=== PATIENT | male | born 1950 | race African-American/Black ===

== ENCOUNTER 2021-07-29 10:47 | Day surgery (SDC) | payer OTHER ==
[~2021-07-29] VITALS: Ht 172.7 cm; Wt 85.9 kg
[2021-07-29 11:28] VITALS: BP 127/61; PULSE 67; TEMP 97.9
[2021-07-29] MEDS ORDERED: NORVASC 10MG10 MG PO (11:44)
[2021-07-29] MEDS ORDERED: NATURAL C500 MG PO (11:45)
[2021-07-29] MEDS ORDERED: LIPITOR 80MG80 MG PO (11:45)
[2021-07-29] MEDS ORDERED: COREG 25MG25 MG/TAB PO (11:45)
[2021-07-29] MEDS ORDERED: COLACE 100100 MG/CAP PO (11:46)
[2021-07-29] MEDS ORDERED: COSOPT 2%-0.5%10 ML OU (11:47)
[2021-07-29] MEDS ORDERED: FERROUS SU325 MG/TAB PO (11:48)
[2021-07-29] MEDS ORDERED: EPOGEN20000 U/ML SQ (11:48)
[2021-07-29] MEDS ORDERED: APRESOLINE50 MG PO (11:49)
[2021-07-29] MEDS ORDERED: NOVOLOG FLEX100 U/ML SQ (11:50)
[2021-07-29] MEDS ORDERED: HCTZ 25MG TAB25 MG PO (11:51)
[2021-07-29] MEDS ORDERED: LEVEMIR FLEX100 U/ML SQ (11:52)
[2021-07-29] MEDS ORDERED: ZESTRIL40 MG PO (11:52)
[2021-07-29] MEDS ORDERED: CVS GLUCOSE BIT1 CTB PO (11:53)
[2021-07-29 11:56] LABS: CALCIUM 8.5 mg/dL (8.4-10.2); CREATININE, serum 4.62 mg/dL (0.72-1.25); POTASSIUM 3.9 mmol/L (3.5-4.5)
[2021-07-29 15:27] VITALS: BP 109/56; PULSE 62; TEMP 97.7
--- NOTE | 2021-07-29 15:27 | NUR ---
The patient arrived back to [facility] from the recovery room at this time. The patient appears alert and oriented and denies any pain or nausea at this time. The patient's post operative vital signs were started at this time. The patient's is at his bedside at this time. The patient's dressing to his catheter and the four bandaids to his abdomen appear clean, dry and intact. Call light is within reach. Will continue to monitor the patient.
[2021-07-29 15:42] VITALS: BP 111/56; PULSE 65
--- NOTE | 2021-07-29 15:42 | NUR ---
The patient appears more alert and agrees to try some apple juice at this time. The patient's vital signs appear stable. Call light is within reach. Will continue to monitor the patient.
[2021-07-29 15:57] VITALS: BP 116/67; PULSE 63
--- NOTE | 2021-07-29 15:57 | NUR ---
The patient appeared to tolerate the first glass of juice well and requests another glass of juice and some chocolate pudding at this time. remains at his bedside at this time.
--- NOTE | 2021-07-29 16:05 | NUR ---
The patient's reported to the nurse that his oxygen saturation at home over the "last few weeks" has been "about 87%". She did state that [facility] but does not currently have any oxygen at home. She thinks the [facility] "might think [facility] still has some" and the nurse encouraged her to reach out to his physician there to inquire about him getting home oxygen once again.
[2021-07-29 16:12] VITALS: BP 111/50; PULSE 67
--- NOTE | 2021-07-29 16:12 | NUR ---
The patient was weaned down to room air at this time. The patient appears to be tolerating it well. The patient finished his pudding and juice and tolerate it well. remains at his bedside.
--- NOTE | 2021-07-29 16:23 | NUR ---
Dr. Ga was notified of the patient's current oxygen saturation and what he has been maintaining at at home, which per the is 87%, he verbalized understanding and instructed the nurse that the patient can be discharged with an oxygen saturation at or above 85% on room air.
[2021-07-29 16:42] VITALS: BP 112/55; PULSE 63
--- NOTE | 2021-07-29 16:42 | NUR ---
The patient is sitting up in bed and maintaining his oxygen satruation between 85-87% on room air. The patient's is encouraging him to deep breath and cough and he is doing it and tolerating it well. The patient voices a desire to be discharged home.
--- NOTE | 2021-07-29 16:55 | NUR ---
The patient voided 200 mL of yellow, clear urine standing at his bedside using the urinal and tolerated the activity well.
--- NOTE | 2021-07-29 17:05 | NUR ---
Discharge instructions were reviewed with the patient and his at this time. They both verbalized understanding and questions were answered at this time. The nurse encouarged the patient's to monitor his oxygen level and reminded her that Dr. Ga would like it to maintain above 85%. The asked what to do if it gets below that level and stays there and the nurse informed her that he would need to be taken to the closest Emergency Room for evaluation. The patient's IV was removed and a pressure dressing was applied to the site.
--- NOTE | 2021-07-29 17:15 | NUR ---
The patient was escorted out via wheelchair to a private vehicle by RAFFAELE Spaulding. The patient's belongings and discharge paperwork were sent with him. The patient's and son are present to drive him home.
== END 2021-07-29 17:15 | disposition home or self-care (01) ==
LOC: SDCO 10:47
PROVIDERS: Surgery
DX: N18.5 Chronic kidney disease, stage 5 (principal); I12.0 Hypertensive chronic kidney disease with stage 5 chronic kidney disease or end stage renal disease; E11.22 Type 2 diabetes mellitus with diabetic chronic kidney disease; E11.21 Type 2 diabetes mellitus with diabetic nephropathy; J44.9 Chronic obstructive pulmonary disease, unspecified; D64.9 Anemia, unspecified; F17.210 Nicotine dependence, cigarettes, uncomplicated; Z79.899 Other long term (current) drug therapy; Z79.4 Long term (current) use of insulin; Z79.82 Long term (current) use of aspirin; Z85.51 Personal history of malignant neoplasm of bladder; Z80.42 Family history of malignant neoplasm of prostate; Z80.3 Family history of malignant neoplasm of breast; Z83.3 Family history of diabetes mellitus
CPT/HCPCS: C1750; J0690; J2370; J2405; J2704; J3010; J7030

== ENCOUNTER 2022-06-07 15:36 | Inpatient (IN) | payer OTHER, MEDICARE ==
[~2022-06-07] VITALS: Ht 172.7 cm; Wt 81.4 kg
[~2022-06-07 15:36] MED LIST: APRESOLINE50 MG PO; COLACE 100100 MG/CAP PO; COREG 25MG25 MG/TAB PO; COSOPT 2%-0.5%10 ML OU; CVS GLUCOSE BIT1 CTB PO; EPOGEN20000 U/ML SQ; FERROUS SU325 MG/TAB PO; HCTZ 25MG TAB25 MG PO; LEVEMIR FLEX100 U/ML SQ; LIPITOR 80MG80 MG PO; NATURAL C500 MG PO; NORVASC 10MG10 MG PO; NOVOLOG FLEX100 U/ML SQ; ZESTRIL40 MG PO
[2022-06-07 16:19] LABS: BASO # 0.1 K/mm3 (0.0-0.2); BASO % 0.6 % (0.0-2.0); EOS # 0.1 K/mm3 (0.0-0.7); EOS % 0.6 % (0.0-4.0); GRAN # 13.4 K/mm3 (1.4-6.5); GRAN % 86.9 % (42.2-75.2); LYMPH # 0.7 K/mm3 (1.2-3.4); LYMPH % 4.7 % (20.0-51.0); MEAN CELL VOLUME 86 fl (80.0-100.0); MEAN CORPUSCULAR HEMOGLOBIN 29 pg (27-31); MEAN CORPUSCULAR HGB CONC 33 g/dl (33.0-37.0); MEAN PLATELET VOLUME 9.4 fl (7.4-10.4); MONO % 6.7 % (1.7-9.3); PLATELET COUNT 371 K/mm3 (130-400); RED BLOOD COUNT 3.85 M/mm3 (4.20-5.60)
[2022-06-07 16:20] LABS: HEMATOCRIT 33.2 % (42.0-52.0)
[2022-06-07 16:40] LABS: ALBUMIN 2.8 gm/dL (3.4-4.8); ALKALINE PHOSPHATASE 143 U/L (40-150); ANION GAP 24 mmol/L (7-16); AST,SGOT 23 U/L (5-34); BILIRUBIN,TOTAL 0.4 mg/dL (0.2-1.2); BLOOD UREA NITROGEN 55 mg/dL (8-26); CALCIUM 9.4 mg/dL (8.4-10.2); CARBON DIOXIDE 27 mmol/L (23-31); CREATININE, serum 13.84 mg/dL (0.72-1.25); GLUCOSE 158 mg/dL (70-99); LIPASE 11 U/L (8-78); SODIUM 140 mmol/L (136-145); TOTAL PROTEIN 7.4 gm/dL (6.2-8.1)
[2022-06-07 16:56] LABS: ALANINE AMINOTRANSFERASE < 6 U/L (0-55); CHLORIDE 89 mmol/L (98-107)
[2022-06-07 19:05] LABS: INR 1.1 (0.8-3.0); PROTHROMBIN TIME 12.7 SECONDS (9.7-12.8)
[2022-06-07 20:00] VITALS: BP 109/95; PULSE 94; TEMP 98.7
--- NOTE | 2022-06-07 22:00 | NUR ---
Patient arrived to the floor at 1999, INT to LFA, with oxygen at 3liters via nasal prong, denies pain, head to toe assessment done, spoken to his Nani to ask patient's home meds but she couldn't tell this nurse as to when was the last time he took each of his 's meds, patient as well can't tell the nurse as well. [facility] for the [facility] list of home meds. Patient able to voice needs, call light and personal items within reach, will continue to monitor.
[2022-06-08] VITALS (11 sets, daily range): BP systolic 77–111; BP diastolic 34–66; PULSE 68–91; TEMP 97.8–98.7
--- NOTE | 2022-06-08 00:40 | NUR ---
Called Dr. Shea d/t patient's manual blood pressure reading was 82/40. Received orders for blood sugra check 4 times a day, moderate sliding scale insulin, and NS 500cc to run in [address] Shea was also informed regarding the medrec that was not yet done.
--- NOTE | 2022-06-08 02:30 | NUR ---
PT FOUND ON 4L/NC SPO2 92% RN NOTIFIED NO O2 ORDER IN CHART
--- NOTE | 2022-06-08 02:43 | NUR ---
Patients blood pressure was 88/50, in trendelenburg position, denies dizziness or light headedness, still with NS running at 100cc/hr, will continue to monitor.
--- NOTE | 2022-06-08 06:02 | NUR ---
Patient's blood pressure 108/63, denies further need at this time, denies nausea or vomiting, will continue to monitor.
--- NOTE | 2022-06-08 10:09 | NUR ---
Patient resting in bed. He had a large incontinent episode of stool. Patient provided with a full bed bath & new linens. Patient sat up in the chair this am. He is NPO for dialysis cath placement with late this afternoon, i did speak to to get Npo orders. Patient has Int to Hand. Peritoneal dialysis site to lower quadrant dressing intact. Will monitor
--- NOTE | 2022-06-08 10:28 | NUR ---
Initial visit; Patient thanked Receiving Specialist for offering God's blessings and keeping him in her prayers.
[2022-06-08 10:42] LABS: BASO # 0.1 K/mm3 (0.0-0.2); BASO % 0.3 % (0.0-2.0); EOS # 0.2 K/mm3 (0.0-0.7); EOS % 1.3 % (0.0-4.0); GRAN # 13.6 K/mm3 (1.4-6.5); GRAN % 85.9 % (42.2-75.2); LYMPH # 0.8 K/mm3 (1.2-3.4); LYMPH % 4.9 % (20.0-51.0); MEAN CELL VOLUME 90 fl (80.0-100.0); MEAN CORPUSCULAR HGB CONC 32 g/dl (33.0-37.0); MEAN PLATELET VOLUME 9.3 fl (7.4-10.4); MONO # 1.1 K/mm3 (0.1-0.6); MONO % 7.2 % (1.7-9.3); PLATELET COUNT 307 K/mm3 (130-400); RED BLOOD COUNT 3.17 M/mm3 (4.20-5.60); REDCELL DISTRIBUTION WIDTH-CV 14.2 % (11.5-14.5)
[2022-06-08 10:43] LABS: HEMATOCRIT 28.4 % (42.0-52.0); MEAN CORPUSCULAR HEMOGLOBIN 28 pg (27-31)
[2022-06-08 11:00] LABS: ALBUMIN 2.3 gm/dL (3.4-4.8); CALCIUM 8.4 mg/dL (8.4-10.2); CREATININE, serum 14.46 mg/dL (0.72-1.25); PHOSPHOROUS 6.7 mg/dL (2.3-4.7)
[2022-06-08 11:02] LABS: POTASSIUM 2.9 mmol/L (3.5-4.5)
--- NOTE | 2022-06-08 11:14 | NUR ---
Sherrill MCGARRY made aware of K+ level of 2.9
--- NOTE | 2022-06-08 11:24 | NUR ---
Sherrill made aware of blood sugar of 63, hypoglycemia protcol to be followed
[2022-06-08] MEDS ORDERED: ASPIRIN 81M81 MG/TA2 PO (11:30)
[2022-06-08] MEDS ORDERED: LAC-HYDRIN LOT 225GM TP (11:30)
[2022-06-08] MEDS ORDERED: ROCALTROL0.5 MCG PO (11:31)
[2022-06-08] MEDS ORDERED: PHOS LO PO (11:32)
[2022-06-08] MEDS ORDERED: FORTAZ1 GM IJ (11:33)
[2022-06-08] MEDS ORDERED: LASIX 80MG TABL80 MG PO (11:34)
[2022-06-08] MEDS ORDERED: PROTONIX 40MG T40 MG PO (11:35)
[2022-06-08] MEDS ORDERED: TRADJENTA5 MG PO (11:36)
[2022-06-08] MEDS ORDERED: CVS GLUCOSE BIT1 CTB PO (11:47)
--- NOTE | 2022-06-08 13:12 | NUR ---
Blood sugar improved after following hypoglycemia protocol. 108. Still awaiting orders from nephrology regaurding K+ level. Patient had another loose incontinent stool, pericares provided. VSS on O2. Med rec completed & updated [facility], Sherrill made aware. There are concerns about lasix dosage.
--- NOTE | 2022-06-08 13:18 | NUR ---
The patient was sleeping. SW contacted the patient's , Nani (ph#[phone]), to discuss discharge plan. The patient lives in [place] with Nani, Nani's step-father, and grandson. Nani reports that the patient is independent with ADLs and has a cane and walker. He was doing home dialysis. The patient's PCP is Dr. Jo at the [facility] and he [facility] from [facility]. The patient does not have a DPOA-HC in EMR. Nani is unsure if the patient has a DPOA-HC. She states that if he does, the [facility] may have it one on file. The patient is having a tunnel catheter placed for outpatient dialysis. Nani states that the patient was approved to do dialysis at [facility] since September. OT recommends home with spouse. Nani reports that the plan is for the patient to return back home with her upon discharge. *Discharge plan: home with *
--- NOTE | 2022-06-08 13:20 | NUR ---
spoke with ,regaurding medication list (especially lasix dose) and there is confusion about what he is actually taking based off 2 list provided.
--- NOTE | 2022-06-08 13:41 | NUR ---
Called patient Nani again request that she bring patient medication bottles to the hospital so that we can update medication list as accurately as possible. also wanting to visit with patient and his .
[2022-06-08] MEDS ORDERED: DIFLUCAN200 MG PO (14:31)
[2022-06-08] MEDS ORDERED: FLOMAX 0.40.4 MG/CAP PO (14:31)
[2022-06-08] MEDS ORDERED: LASIX 40MG TABL40 MG PO (14:34)
[2022-06-08 15:45] LABS: COLLECTION METHOD CLEAN CATCH
[2022-06-08 15:57] LABS: AMORPHOUS CRYSTAL Present (NOT PRESENT); MUCOUS Present (NOT PRESENT); URINE APPEARANCE Hazy (CLEAR/HAZY); URINE BACTERIA Moderate /hpf (NONE SEEN); URINE COLOR Yellow (YELLOW)
--- NOTE | 2022-06-08 15:57 | NUR ---
Patient resting in bed. at bedside. rounded, orders obtained for Gi panel & Ua collected via straight cath. Samples sent to lab. Blood sugar checked & again low 68. Spoke to Sherrill Bush, made her aware. Hypoglycemia protocol followed. Also discussed with her that now new orders were placed for K+ level, she was unaware did not place orders, she was going to log in and place orders. I spoke with Morgan in Anesthesia and discussed K+ level & Glucose level. Patient to the Or with Or staff
[2022-06-08 15:58] LABS: PH 5.5 (5.0-8.5); URINE BLOOD 3+ (NEGATIVE); URINE GLUCOSE Negative (NEGATIVE); URINE KETONE TRACE (NEGATIVE); URINE NITRATE Negative (NEGATIVE); URINE PROTEIN(semi-quant) 2+ (NEGATIVE); URINE UROBILINOGEN 0.2 E.U/dL (0.2-1.0)
--- NOTE | 2022-06-08 18:09 | NUR ---
Patient has returned from dialysis cath. Dressing to [facility]. Tele placed back on patient. His and corporate accountant were at bedside. spoke with family. Dialysis diet ordered. Patient ready to eat. K+ given per orders, patient did having a coughing/choking episode with pills, reports he has troubles with pills at home sometimes. Vss on O2. Scds ble. Will report off to nightnurse
--- NOTE | 2022-06-08 21:00 | NUR ---
Patient A/Ox4, VSS, head to toe assessmend done, see shift assessment, denies pain or discomfort, remains on 3LPM via nasal prong, able to voice needs, call light and personal items within reach, will continue to monitor.
[2022-06-09 03:39] VITALS: BP 105/52; PULSE 69; TEMP 98.3
[2022-06-09 06:44] LABS: BASO # 0.1 K/mm3 (0.0-0.2); BASO % 0.5 % (0.0-2.0); EOS # 0.5 K/mm3 (0.0-0.7); EOS % 4.2 % (0.0-4.0); GRAN # 8.8 K/mm3 (1.4-6.5); GRAN % 76.2 % (42.2-75.2); LYMPH % 8.9 % (20.0-51.0); MEAN CELL VOLUME 91 fl (80.0-100.0); MEAN CORPUSCULAR HGB CONC 32 g/dl (33.0-37.0); MEAN PLATELET VOLUME 9.7 fl (7.4-10.4); MONO # 1.1 K/mm3 (0.1-0.6); MONO % 9.8 % (1.7-9.3); PLATELET COUNT 313 K/mm3 (130-400); RED BLOOD COUNT 2.89 M/mm3 (4.20-5.60); REDCELL DISTRIBUTION WIDTH-CV 14.1 % (11.5-14.5)
[2022-06-09 06:45] LABS: HEMOGLOBIN 8.3 g/dl (13.5-18.0); MEAN CORPUSCULAR HEMOGLOBIN 29 pg (27-31)
[2022-06-09 06:47] LABS: HEMATOCRIT 26.2 % (42.0-52.0)
[2022-06-09 07:11] LABS: ALBUMIN 2.2 gm/dL (3.4-4.8); CALCIUM 8.3 mg/dL (8.4-10.2); CREATININE, serum 15.28 mg/dL (0.72-1.25); POTASSIUM 3.2 mmol/L (3.5-4.5)
[2022-06-09 07:35] VITALS: BP 110/67; PULSE 68; TEMP 98.3
--- NOTE | 2022-06-09 08:33 | NUR ---
PATIENT ALERT AND ORIENTED X4. VSS. PATIENT DENIES PAIN. DIALYSIS CATHETER TO RIJ, TEGADERM INTACT. ASSESSMENT PERFORMED. AM MEDS ADMINISTERED. PATIENT ON 2L NC. PATIENT TAKEN TO DIALYSIS AFTER 0800.
[2022-06-09 15:49] VITALS: BP 134/60; PULSE 65; TEMP 98
[2022-06-09 19:14] VITALS: BP 146/72; PULSE 67; TEMP 98.9
--- NOTE | 2022-06-09 20:00 | NUR ---
Patient A/Ox4, VSS, head to toe assessment done, see shift assessment, denies pain or discomfort, remains on 2L via nasal prong, able to voice needs, call light and personal items within reach, will continue to monitor.
[2022-06-09 23:18] VITALS: BP 107/54; PULSE 65; TEMP 98.3
[2022-06-10 03:03] VITALS: BP 146/73; PULSE 64; TEMP 97.9
[2022-06-10 07:22] LABS: BASO # 0.1 K/mm3 (0.0-0.2); BASO % 0.9 % (0.0-2.0); EOS # 0.8 K/mm3 (0.0-0.7); EOS % 7.8 % (0.0-4.0); GRAN # 6.7 K/mm3 (1.4-6.5); GRAN % 67.2 % (42.2-75.2); LYMPH # 1.2 K/mm3 (1.2-3.4); LYMPH % 11.6 % (20.0-51.0); MEAN CELL VOLUME 90 fl (80.0-100.0); MEAN CORPUSCULAR HGB CONC 32 g/dl (33.0-37.0); MEAN PLATELET VOLUME 10.1 fl (7.4-10.4); MONO # 1.2 K/mm3 (0.1-0.6); MONO % 12.2 % (1.7-9.3); PLATELET COUNT 333 K/mm3 (130-400); RED BLOOD COUNT 3.18 M/mm3 (4.20-5.60)
[2022-06-10 07:24] LABS: HEMATOCRIT 28.7 % (42.0-52.0); HEMOGLOBIN 9.2 g/dl (13.5-18.0); MEAN CORPUSCULAR HEMOGLOBIN 29 pg (27-31)
[2022-06-10 08:00] VITALS: BP 129/56; PULSE 69; TEMP 98
[2022-06-10 08:16] LABS: ALBUMIN 2.3 gm/dL (3.4-4.8); CALCIUM 9.1 mg/dL (8.4-10.2); CREATININE, serum 10.29 mg/dL (0.72-1.25); PHOSPHOROUS 4.6 mg/dL (2.3-4.7)
--- NOTE | 2022-06-10 11:03 | NUR ---
PATIENT REPORTS LOOSE BM X5 THIS AM. IMODIUM ADMINISTERED. PATIENT RESTING IN BED.
[2022-06-10 11:59] VITALS: BP 132/64; PULSE 63; TEMP 98.3
[2022-06-10] MEDS ORDERED: LEVAQUIN 5500 MG/TA1 PO (15:30)
--- NOTE | 2022-06-10 16:53 | NUR ---
DISCHARGE INSTRUCTIONS PROVIDED. PATIENT EDUCATION GIVEN. MEDICATIONS REVIEWED. NO FOLLOW UP APPOINTMENT TO DISCUSS. DISCUSSED THE NEED FOR DIALYSIS AND POSSIBLE NEED TO REACH OUT TO BEDROS AND TEAM IF NEEDED. PATIENT DENIES ANY QUESTIONS OR CONCERNS. IV DC'D. PATIENT ESCORTED OUT VIA WHEELCHAIR.
== END 2022-06-10 16:30 | disposition home or self-care (01) | DRG 314 ==
LOC: COL.ER 15:36 → SURG 18:26
PROVIDERS: Family Medicine; Registered Nurse; Surgery; ADMIT Internal Medicine Nephrology
PROC: B513YZA Fluoroscopy of Right Jugular Veins using Other Contrast, Guidance (ICD-10-PCS; 2022-06-08)
PROC: 02HV33Z Insertion of Infusion Device into Superior Vena Cava, Percutaneous Approach (ICD-10-PCS; principal; 2022-06-08 17:00)
PROC: 5A1D70Z Performance of Urinary Filtration, Intermittent, Less than 6 Hours Per Day (ICD-10-PCS; 2022-06-09)
DX: I95.9 Hypotension, unspecified (principal); N18.6 End stage renal disease; I12.0 Hypertensive chronic kidney disease with stage 5 chronic kidney disease or end stage renal disease; N17.9 Acute kidney failure, unspecified; K21.9 Gastro-esophageal reflux disease without esophagitis; E78.5 Hyperlipidemia, unspecified; E11.22 Type 2 diabetes mellitus with diabetic chronic kidney disease; D63.1 Anemia in chronic kidney disease; E87.6 Hypokalemia; N40.0 Benign prostatic hyperplasia without lower urinary tract symptoms; E83.39 Other disorders of phosphorus metabolism; D72.829 Elevated white blood cell count, unspecified; C67.9 Malignant neoplasm of bladder, unspecified; Z20.822 Contact with and (suspected) exposure to COVID-19; Z79.4 Long term (current) use of insulin; Z79.899 Other long term (current) drug therapy; H40.1131 Primary open-angle glaucoma, bilateral, mild stage
CPT/HCPCS: J0690; J0692; J1644; J2405; J2704; J3010; J3370; J7030; J7040; J7050

== ENCOUNTER 2023-11-10 13:49 | Inpatient (IN) | payer OTHER ==
[~2023-11-10] VITALS: Ht 172.7 cm; Wt 88.0 kg
[~2023-11-10 13:49] MED LIST changes: +ASPIRIN 81M81 MG/TA2 PO; +CEFTIN500 MG PO; +DIFLUCAN200 MG PO; +FLOMAX 0.40.4 MG/CAP PO; +FORTAZ1 GM IJ; +LAC-HYDRIN LOT 225GM TP; +LASIX 40MG TABL40 MG PO; +LASIX 80MG TABL80 MG PO; +LEVAQUIN 5500 MG/TA1 PO; +NORCO 325 MG-51 TAB PO; +PHOS LO PO; +PROTONIX 40MG T40 MG PO; +ROCALTROL0.5 MCG PO; +TRADJENTA5 MG PO
[2023-11-10 18:30] VITALS: BP 130/77; PULSE 73; TEMP 98.3
[2023-11-10] MEDS ORDERED: Heparin 5,000 UNITS/ML 1 ML VIAL SQ ONE (22:18)
[2023-11-11] MEDS ORDERED: Ondansetron 4 MG/2 ML VIAL IV PRN (06:50)
[2023-11-11] MEDS ORDERED: Acetaminophen 325 MG TAB PO PRN (06:50)
[2023-11-11] MEDS ORDERED: oxyCODONE 5 MG TAB PO PRN (06:50)
[2023-11-11] MEDS ORDERED: NS 1,000 ML IV SCH (06:50)
[2023-11-11] MEDS ORDERED: Calcium Acetate 667 MG TAB/CAP PO SCH (08:00)
[2023-11-11] MEDS ORDERED: Insulin Lispro (HumaLOG) SQ SCH (08:00)
[2023-11-11] MEDS ORDERED: Heparin 5,000 UNITS/ML 1 ML VIAL SQ ONE (11:45)
--- NOTE | 2023-11-11 16:43 | NUR ---
machine farmworker attempted to meet with patient to discuss discharge planning. Patient was out of his room for a procedure. SW will follow up.
[2023-11-11 16:56] VITALS: BP 146/77; PULSE 69; TEMP 97.6
[2023-11-11] MEDS ORDERED: Glucagon 1 MG VIAL IM PRN (17:00)
[2023-11-11] MEDS ORDERED: Clopidogrel 75 MG TAB PO ONE (17:00)
[2023-11-11] MEDS ORDERED: Dextrose 50% Water 25 GM/50 ML SYRINGE IV PRN (17:00)
[2023-11-11] MEDS ORDERED: Atorvastatin 40 MG TAB PO ONE (17:00)
[2023-11-11] MEDS ORDERED: Dextrose (Glucose) 15 GM (4 x 3.75 GM) Chewable TABLET PACK PO PRN (17:00)
[2023-11-11 17:11] VITALS: BP_SYST 146
[2023-11-11] MEDS ORDERED: Heparin 1,000 UNITS/ML 10 ML Multi-Dose VIAL IV SCH (19:30)
[2023-11-11 21:00] VITALS: BP_SYST 146
[2023-11-11] MEDS ORDERED: Insulin Glargine-ygfn (Lantus) SQ SCH (21:00)
--- NOTE | 2023-11-11 21:30 | NUR ---
UPON SHIFT ASSESSMENT, PRUDENCE WAS AWAKE, CHEERFUL AND AXO X4. NEROS ARE WNL, HOWEVER PUPILS ARE LARGE AND SLUGGISH TO DILATE. VS ARE STABLE. PATIENT C/O OF RT ARM PAIN R/T TO FISTULA AND PRN TYLENOL ADMINISTERED. STATES NO NEEDS AT THIS TIME.
[2023-11-11 23:34] VITALS: BP 129/70; PULSE 69; TEMP 97.5
[2023-11-12] VITALS (8 sets, daily range): BP systolic 100–156; BP diastolic 57–84; PULSE 65–78; TEMP 97.5–97.8
--- NOTE | 2023-11-12 08:00 | NUR ---
PT LAYING IN BED UPON ENTERING. ASSESSMENT DONE, MEDS GIVEN PER ORDER. PT DENIES PAIN. PT ON 2L NASAL CANNULA. INT TO RIGHT HAND PATENT. LEFT UPPER ARM FISTULA NOTED WITHOUT ISSUES. PT CURRENTLY NPO AND UPDATED ON PLAN FOR THE DAY. PT DENIES NEEDS. BED IN LOWEST POSITION, CALL LIGHT IN REACH, BED ALARM.
--- NOTE | 2023-11-12 09:56 | NUR ---
PT IN BRAKE MECHANIC
[2023-11-12 09:59] LABS: BASO # 0.1 K/mm3 (0.0-0.2); BASO % 0.8 % (0.0-2.0); EOS # 0.6 K/mm3 (0.0-0.7); EOS % 7.5 % (0.0-4.0); GRAN # 4.9 K/mm3 (1.4-6.5); GRAN % 62.3 % (42.2-75.2); LYMPH # 1.6 K/mm3 (1.2-3.4); LYMPH % 19.7 % (20.0-51.0); MEAN CELL VOLUME 88 fl (80.0-100.0); MEAN CORPUSCULAR HEMOGLOBIN 29 pg (27-31); MEAN CORPUSCULAR HGB CONC 33 g/dl (33.0-37.0); MEAN PLATELET VOLUME 9.8 fl (7.4-10.4); MONO # 0.8 K/mm3 (0.1-0.6); MONO % 9.6 % (1.7-9.3); PLATELET COUNT 322 K/mm3 (130-400); RED BLOOD COUNT 4.09 M/mm3 (4.20-5.60)
[2023-11-12 10:00] LABS: HEMATOCRIT 36.1 % (42.0-52.0)
[2023-11-12 10:07] LABS: INR 0.9 (0.8-3.0); PROTHROMBIN TIME 10.4 SECONDS (9.7-12.8)
[2023-11-12 10:16] LABS: CREATININE, serum 12.05 mg/dL (0.72-1.25); POTASSIUM 4.6 mEq/L (3.5-4.5)
[2023-11-12] MEDS ORDERED: LR 1,000 ML IV SCH (10:30)
[2023-11-12] MEDS ORDERED: Propofol 10 MG/ML 10 ML VIAL IV ONE (11:18)
[2023-11-12] MEDS ORDERED: Lidocaine PF 2% (20 MG/ML) 5 ML VIAL IV ONE (11:18)
--- NOTE | 2023-11-12 12:07 | NUR ---
Bedside report completed with Abhinav Avendaño, call light within reach, first set of vitals reviewed. Insertion site reviewed.
--- NOTE | 2023-11-12 12:13 | NUR ---
PT BACK FROM DENTAL SALES REPRESENTATIVE, AT BEDSIDE. POST OP VITALS STARTED. PT DENIES PAIN OR NEEDS AT THIS TIME. PT ON ROOM AIR WITH O2 SATS AT 94%, WILL KEEP ON ROOM AIR AT THIS TIME. VITAL SIGNS STABLE AND PT ASKING WHEN HE CAN EAT.
--- NOTE | 2023-11-12 14:00 | NUR ---
PT IN DIALYSIS
[2023-11-12] MEDS ORDERED: PROAMATINE10 MG PO (15:04)
[2023-11-12] MEDS ORDERED: PLAVIX 75MG TAB75 MG PO (15:04)
[2023-11-12] MEDS ORDERED: ASPIRIN 81M81 MG/TA2 PO (15:05)
--- NOTE | 2023-11-12 16:30 | NUR ---
Interactive Media Specialist met with patient to complete initial intake. Patient lives in [place] and goes to the [facility] for primary care and medications. Patient stated he is on the [facility] team. Patient gets dialysis at [facility]. Patient uses oxygen at home that he got from the [facility] and also has a cane for ambulation. Patient is independent with ADLS including driving. Patient does not have DPOA-HC and was not interested in completing one at this time. Patient plans to return home at time of discharge. Discharge Plan; Home
--- NOTE | 2023-11-12 17:36 | NUR ---
Dialysis Note Pt arrived to tx via Bed. Uf goal set for 2.2 and 2.2 removed. Pt dcd back to room without complaints.
--- NOTE | 2023-11-12 18:46 | NUR ---
IV REMOVED AND PT DRESSED IN PERSONAL CLOTHES. DISCHARGE INSTRUCTIONS GIVEN. MEDS SENT TO [facility] AND PT NOTIFIED THIS NURSE [facility] [place]. THIS NURSE NOTIFIED THEM THAT HOSPITALIST WILL BE NOTIFIED TO CHANGE THAT AND PT/ STATES THAT ITS FINE AND THAT THEYLL DE IONIZER OPERATOR THE [facility] SINCE THEY HAVE THE MIDODRINE AND ASPIRIN AT HOME. CHARGE NOTIFIED AND OKAY WITH THIS. PT ESCORTED TO PERSONAL VEHICLE VIA WHEELCHAIR BY PCT AND DENIES NEEDS
[2023-11-12] MEDS ORDERED: Clopidogrel 75 MG TAB PO SCH (21:00)
--- NOTE | 2023-11-13 15:57 | NUR ---
Due to downtime, documentation on EMR completed post-care by Sahara Lopez RN; refer to scanned downtime paper documentation for full care documentation. Downtime from 11/10/23 0600 to 11/11/23 1400.
[2023-11-13] MEDS ORDERED: NS 500 ML IV ONE (16:30)
== END 2023-11-12 19:11 | disposition home or self-care (01) | DRG 64 ==
LOC: COL.ER 13:49 → SURG 18:00 → MEDICAL 11-11 23:25
PROVIDERS: ADMIT Internal Medicine
DX: I63.9 Cerebral infarction, unspecified (principal); N18.6 End stage renal disease; I12.0 Hypertensive chronic kidney disease with stage 5 chronic kidney disease or end stage renal disease; Z99.2 Dependence on renal dialysis; I25.10 Atherosclerotic heart disease of native coronary artery without angina pectoris; E11.22 Type 2 diabetes mellitus with diabetic chronic kidney disease; Z79.4 Long term (current) use of insulin; J44.9 Chronic obstructive pulmonary disease, unspecified; E78.5 Hyperlipidemia, unspecified; N40.0 Benign prostatic hyperplasia without lower urinary tract symptoms
CPT/HCPCS: C1764; J1644; J1815; J2704; J7030; J7040; Q3014